=== PATIENT | male | born 1940 | race Asian ===

== ENCOUNTER 2019-05-09 06:02 | Emergency (ER) | payer SELFPAY ==
--- NOTE | 2019-05-09 06:34 | Emergency Department Report ---
HPI - General Chief Complaint: High BP Time Seen by Provider: 05/09/19 06:12 - HPI HPI: The patient has a previous chart with [id number]. 78-year-old male presents to the emergency department from his dialysis clinic with the complaint of not getting dialysis this morning secondary to elevated blood pressure. He has a history of hypertension, end-stage renal disease on hemodialysis on Saturday//Saturday, aortic stenosis, coronary artery disease. He did not take his blood pressure medication prior to getting dialysis this morning. He also was not given anything for treatment of the elevated blood pressure prior to being sent to the emergency department. He has no complaints of any chest pain, shortness of breath, edema, fever. He does have a new cough that started this morning. No recent travel or sick contacts at home. Family is unsure of who the patient's first responder is, but he has previous repeated consultations from the [facility] nephrology group. ED Past Medical Hx - Past Medical History Hx Hypertension: Yes Hx Renal Disease: Yes - Surgical History Hx Pacemaker: Yes - Social History Smoking Status: Former Smoker ED Review of Systems ROS: Stated complaint: HYPERTENSION Other details as noted in HPI Comment: All other systems reviewed and negative Constitutional: denies: chills, fever Eyes: denies: eye pain, vision change ENT: denies: ear pain, throat pain Respiratory: cough. denies: shortness of breath Cardiovascular: denies: chest pain, palpitations, edema Gastrointestinal: denies: abdominal pain, vomiting Genitourinary: denies: dysuria, discharge Musculoskeletal: denies: back pain, arthralgia Skin: denies: rash, lesions Neurological: denies: headache, weakness Physical Exam - Physical Exam Physical Exam: GENERAL: The patient is well-developed well-nourished. HENT: Normocephalic. Atraumatic. Patient has moist mucous membranes. EYES: Extraocular motions are intact. NECK: Supple. Trachea is midline. CHEST/LUNGS: Clear to auscultation. There is no respiratory distress noted. Right sided chest permacath in place. Cough head during examination. No tachypnea or accessory muscle use. HEART/CARDIOVASCULAR: Regular. There is no tachycardia. There is no murmur. ABDOMEN: Abdomen is soft, nontender. Patient has normal bowel sounds. There is no abdominal distention. SKIN: Skin is warm and dry. NEURO: The patient is awake, alert, and oriented. The patient is cooperative. The patient has no focal neurologic deficits. Normal speech. MUSCULOSKELETAL: There is no tenderness or deformity. There is no evidence of acute injury. ED Course - Consultations Consultation #1: 05/09/19 09:[address] Bradford, the first responder pediatric orthodontist for [facility]. Dr Bradford listened to the case presentation, including the hyperkalemia of 5.9, and he recommends discharging the patient to return immediately to his dialysis clinic for dialysis this morning. ED Medical Decision Making - Lab Data Result diagrams: 05/09/19 06:39 05/09/19 06:39 - Radiology Data Radiology results: image reviewed interpreted by me: Chest x-ray does not show any acute process. There are no pleural effusions, obvious pneumonia and there is no pneumothorax. - Medical Decision Making The patient presents to the ED after he was unable to get dialysis this AM secondary to HTN. However, the blood pressure has been reasonable since presentation to the ED. His only complaint is a cough. CXR did not show any pneumonia, plueral effusions or any other acute process. Labs show his ESRD and some hyperkalemia with K+ of 5.9. Spoke with nephrology who recommends discharge back to the dialysis clinic to get dialyzed. - Differential Diagnosis volume overload, pneumonia, Hyperkalemia Critical Care Time: No Critical care attestation.: If time is entered above; I have spent that time in minutes in the direct care of this critically ill patient, excluding procedure time. ED Disposition Clinical Impression: ESRD needing dialysis, Hyperkalemia Disposition: -01 TO HOME OR SELFCARE Is pt being admited?: No Condition: Stable Instructions: End-Stage Kidney Disease (ED) Additional Instructions: Go straight to your dialysis clinic to get dialysis this morning. Return to the emergency department with any concerns or any acute distress. Referrals: PRIMARY CAREMD [Primary Care Provider] - 3-5 Days Time of Disposition: 09:27
[2019-05-09 07:09] LABS: Basophils # (Auto) 0.1 K/mm3 (0.0-0.1); Basophils % (Auto) 0.8 % (0.0-1.8); Eosinophils # (Auto) 0.1 K/mm3 (0.0-0.4); Eosinophils % (Auto) 0.6 % (0.0-4.3); Hematocrit 35.9 % (35.5-45.6); Hemoglobin 11.7 gm/dl (11.8-15.2); Lymphocytes # (Auto) 0.5 K/mm3 (1.2-5.4); Lymphocytes % (Auto) 4.1 % (13.4-35.0); Mean Corpuscular HGB Conc 32 % (32-34); Mean Corpuscular Volume 94 fl (84-94); Monocytes # (Auto) 1.1 K/mm3 (0.0-0.8); Monocytes % (Auto) 9.7 % (0.0-7.3); Platelet Count 109 K/mm3 (140-440); Red Blood Count 3.83 M/mm3 (3.65-5.03)
[2019-05-09 07:17] LABS: Calcium 9.2 mg/dL (8.4-10.2)
--- NOTE | 2019-05-09 07:18 | XRay Report ---
CHEST 1 VIEW INDICATION / CLINICAL INFORMATION: cough. COMPARISON: 03/31/2019 FINDINGS: SUPPORT DEVICES: Right venous access catheter projects over the superior vena cava HEART / MEDIASTINUM: Moderate stable enlargement of the cardiac silhouette LUNGS / PLEURA: No significant pulmonary or pleural abnormality. No pneumothorax. ADDITIONAL FINDINGS: No significant additional findings. IMPRESSION: 1. No acute findings. Signer Name: Valeriano Franklin MD Signed: 05/09/2019 7:14 AM Workstation Name: [id number]
[2019-05-09 07:41] VITALS: BP 116/51
== END 2019-05-09 08:15 | disposition home or self-care (01) ==
LOC: EDBD → ED 06:02
DX: I12.0 Hypertensive chronic kidney disease with stage 5 chronic kidney disease or end stage renal disease (principal); E11.22 Type 2 diabetes mellitus with diabetic chronic kidney disease; N18.6 End stage renal disease; E87.5 Hyperkalemia; Z99.2 Dependence on renal dialysis; Z87.891 Personal history of nicotine dependence
CPT/HCPCS: 36415; 71045; 80048; 85025; 99284